=== PATIENT | male | born 1985 | race Caucasian/White ===

== ENCOUNTER 2020-10-19 12:21 | Emergency (ER) | payer OTHER, SELFPAY ==
[2020-10-19 12:36] VITALS: BP 126/80; PULSE 77; RESP 18; TEMP 36.7; O2SAT 98
--- NOTE | 2020-10-19 13:00 | ED.SKABFB ---
HPI - Skin/Abscess/Foreign Bdy General Chief complaint: Skin/Abscess/Foreign Body Stated complaint: poison abrahan Source: patient and RN notes reviewed Limitations: no limitations History of Present Illness HPI narrative: The patient, who works in [employer], presents with skin eruption. Patient states he has a pink, raised somewhat , classically linear eruption on his right forearm and other scattered sites. Symptoms are mild unrelieved with his eczema steroid cream, like prior poison abrahan. No fever, discharge, redness/streaking; requests refill of his asthma inhaler. Related Data Home Medications Medication Instructions Recorded Confirmed cetirizine [Zyrtec] 10 mg PO DAILY PRN 10/19/20 10/19/20 Allergies Allergy/AdvReac Type Severity Reaction Status Date / Time No Known Allergies Allergy Verified 10/19/20 12:33 Review of Systems Review of Systems: General/Constitutional: No weight loss,fever Eyes: N0: Redness,discharge Ears/Nose/Throat: No: Epistaxis,ear discharge Respiratory: Denies: Hemoptysis Gastrointestinal: No Vomiting, Bleeding-rectal Skin: No Lumps, REPORTS eruption Neurologic: No Focal Weakness,Sz Hematologic: Denies: Petechiae/Purpura Psychiatric: No: Suicida ideationl All Other Systems: Reviewed and Negative PMFSH Social History Social History Gender identity (if verbalized by the patient): Male Comments At time of signature, agree with nursing past medical, surgical, social and family history. There is no relevant family history pertinent to the presenting complaint Exam Narrative: General Appearance: Well nourished Normocephalic, Conjunctiva clear Mouth/Throat: Normal appearing Neck Exam: Supple Respiratory: Airway patent, No respiratory distress Musculoskeletal: Moves all extremities, Non tender Skin: Warm, Dry; rare, scattered classic macropapular and papulovesicular eruption on arm, trunk Neurological: A&O x3 Psychiatric: Normal mood, Normal affect Course Vital Signs Vital signs: Vital Signs Temperature 98.0 F 10/19/20 12:36 Pulse Rate 77 10/19/20 12:36 Respiratory Rate 18 10/19/20 12:36 Blood Pressure 126/80 10/19/20 12:36 Pulse Oximetry 98 10/19/20 12:36 Temperature 98.0 F 10/19/20 12:36 Pulse Rate 77 10/19/20 12:36 Respiratory Rate 18 10/19/20 12:36 Blood Pressure 126/80 10/19/20 12:36 Pulse Oximetry 98 10/19/20 12:36 Discharge Plan Discharge Clinical Impression: Contact dermatitis Qualifiers: Contact dermatitis type: unspecified Contact dermatitis trigger: non-food plants Qualified Code(s): L25.5 - Unspecified contact dermatitis due to plants, except food Patient Disposition: Home, Self-Care Condition: Stable Instructions: Contact Dermatitis (ED) Prescriptions: New prednisone 20 mg tablet 60 mg PO DAILY Qty: 21 RF: 0 albuterol sulfate [Ventolin HFA] 90 mcg/actuation HFA aerosol inhaler 2 puff INHALATION QID PRN (Reason: shortness of breath or wheezing) Qty: 8.5 RF: 1 No Action cetirizine [Zyrtec] 10 mg Tablet 10 mg PO DAILY PRN (Reason: Eye Irritation) RF: 0 Follow-up/Referrals: PHYSICIAN,SIDE SEAM MACHINE OPERATOR [Primary Care Provider] -
== END 2020-10-19 13:06 | disposition home or self-care (01) ==
PROVIDERS: Emergency Provider Emergency Medicine
DX: L25.5 Unspecified contact dermatitis due to plants, except food (principal); C95.90 Leukemia, unspecified not having achieved remission
CPT/HCPCS: 99203; G0463

== ENCOUNTER 2021-11-15 10:27 | Emergency (ER) | payer OTHER, SELFPAY ==
--- NOTE | 2021-11-15 10:37 | ED.URI ---
HPI - URI/Sore Throat General Chief Complaint: Upper Respiratory Infection Stated Complaint: sorethroat Time Seen by Provider: 11/15/21 10:37 Source: patient Mode of arrival: ambulatory Limitations: no limitations History of Present Illness HPI Narrative: Mr. Spaulding is a 36-year-old male patient presenting to the clinic today with complaints of a throat irritation/difficulty swallowing. He reports this has been an ongoing concern for him however yesterday it got worse. He reports that he was eating something and did not chew it very well and felt as though it got stuck in his throat. He denies any drooling or difficulty breathing. He reports his mother has a same issue and she has had to have an EGD with dilatation in the past for this. MD elicited complaint: sore throat and nasal congestion Related Data Home Medications Medication Instructions Recorded Confirmed No Home Medications 11/15/21 11/15/21 Allergies Allergy/AdvReac Type Severity Reaction Status Date / Time No Known Allergies Allergy Verified 11/15/21 10:47 Review of Systems Review of Systems: Pertinent positives per HPI. Patient denies any fever, chills, rash, headache, visual changes, dizziness, cough, shortness of breath, chest pain, palpitations, nausea, vomiting, diarrhea, constipation, abdominal pain, or any urinary issues. PMFSH Social History Social History Gender identity (if verbalized by the patient): Male Comments At the time of my signature, I reviewed and agree with the nursing past medical, surgical, social, and family history. There is no relevant family history pertinent to the patient complaint. Exam Narrative: General: Well-developed, well nourished, in no apparent distress Head: Normocephalic, atraumatic Eyes: Pupils equally round and reactive to light bilaterally, EOM intact, sclera and conjunctive clear, no discharge, lids normal Ears: TMs intact and clear, ear canals clear, no drainage, grossly hearing normal. Nose: Nares patent, no discharge, no inflammation, no sinus tenderness. Mouth: Oral pharynx without lesions or masses, good dentition, MMM. discomfort in the esophagus without palpable mass Neck: Supple, trachea midline, no enlargement of anterior or posterior cervical nodes, no thyroid masses or goiter palpable. Cardio: Regular rate and rhythm, s1 and s2 normal, no murmur appreciated. Resp: Clear to auscultation bilaterally, no rhonchi, rales, wheezing or rubs Course Course Emergency Course: Portions of this record may have been created with voice recognition software. Level of Care: Express Care Visit Vital Signs Vital signs: Vital signs reviewed MDM - URI/Sore Throat MDM Narrative Medical decision making narrative: At the time of visit patient is resting comfortably on the exam table. Patient has esophageal discomfort with difficulty swallowing and globus sensation. Glucagon 1 mg IM given in the clinic today as a smooth muscle relaxant. Discussed eating a soft/liquid diet until seen by GI. GI referral was given for possible need for EGD with dilatation. Patient was told to go the emergency room if he develops drooling, feeling as though his throat is closing, or shortness of breath. Differential Diagnosis Differential diagnosis: Likely upper respiratory infection, otitis media, sinusitis, viral infection, bronchitis, influenza, pharyngitis and other (Large thyroid, globus sensation, retained food in the esophagus) Discharge Plan Discharge Clinical Impression: Globus sensation, Difficulty in swallowing Patient Disposition: Home, Self-Care Condition: Stable Instructions: Antibiotic Form, Dysphagia (ED) Additional Instructions: Glucagon 1 mg IM given in the clinic today to help as a smooth muscle relaxant Increase fluids and stay well-hydrated Eat a soft/liquid diet until seen by GI specialist Referral given to GI specialist
[2021-11-15 10:44] VITALS: BP 133/84; PULSE 82; RESP 18; TEMP 36.3; O2SAT 98
[2021-11-15] MEDS: GLUCAGON FOR INJ 1 MG VIAL IM (10:59)
== END 2021-11-15 11:28 | disposition home or self-care (01) ==
PROVIDERS: Emergency Provider Nurse Practitioner Family; PCP Nurse Practitioner
DX: F45.8 Other somatoform disorders (principal)
CPT/HCPCS: 96372; 99212; G0463; J1610

== ENCOUNTER 2021-12-17 01:31 | Day surgery (SDC) | payer OTHER, SELFPAY ==
[2021-12-02 12:55] VITALS: BMI 28.8
[2021-12-17 09:00] VITALS: BP 121/88; PULSE 79; RESP 16; TEMP 36.3; O2SAT 100; BMI 28.8
[2021-12-17] MEDS: LACTATED RINGERS 1,000 ML 150 ML IV CONT (09:27)
--- NOTE | 2021-12-17 09:39 | WPDANESEPPF ---
Anes - Initial Pre Proc Eval Procedure: Operation Date: 12/17/21 10:00 Proposed Procedures p Esophagogastroduodenoscopy - Luis Chauhan MD Date/Time: 12/17/21 09:39 Surgeon: Luis Chauhan MD Pre Op Diagnosis: dysphagia Patient Data Age: 36 Gender: M Height: 1.91 m Weight: 104.8 kg Last Vital Signs Temp 97.3 F L 12/17/21 09:00 Pulse 79 12/17/21 09:00 Resp 16 12/17/21 09:00 BP 121/88 12/17/21 09:00 Pulse Ox 100 12/17/21 09:00 O2 Del Method Room Air 12/17/21 09:00 Allergies Allergy/AdvReac Type Severity Reaction Status Date / Time No Known Allergies Allergy Verified 12/02/21 13:06 Home Medications Medication Instructions Recorded Confirmed Type cetirizine 5 mg chewable tablet 5 mg PO DAILY PRN Allergy Symptoms 11/19/21 12/02/21 History fluticasone propionate 50 50 mcg intranasal DAILY 12/02/21 12/02/21 History mcg/actuation nasal spray,suspension Patient hx anesthesia problems: none Family hx anesthesia problems: none Results Review: All pre-operative results and documents have been reviewed as part of the pre-operative evaluation. [facility] Past Medical History Medical History (Updated 11/19/21 @ 08:27 by Cosme Sepulveda) Leukemia Social History Social History Smoking status: Never smoker Alcohol intake: never Substance use: never Substance use type: does not use Living arrangements: with family Gender identity (if verbalized by the patient): Male Spiritual care concerns: No Anes - Eval Final PreProcedure Day of Procedure 12/17/21 09:39 Patient weight: overweight Heart: regular rate and rhythm Lungs: clear to auscultation Airway: Mallampati scale class II Neurological: alert and oriented Last oral intake: >/= 8 hours ASA classification: II Emergent: no Anesthetic plan: proceed Anesthesia type and monitoring: general GIVS and standard monitoring Results Review: All pre-operative results and documents have been reviewed as part of the pre-operative evaluation. Informed Consent: The patient's anesthetic plan and its attendant risks and benefits were discussed with the patient/family/POA. Questions were solicited and answers provided to the satisfaction of the patient/family/POA.
--- NOTE | 2021-12-17 09:56 | WPDHPUPDATE1 ---
History and Physical Update Update Date/Time: 12/17/21 09:57 History and Physical has been reviewed, including an updated exam of the patient. There are NO changes in the patient's condition. Risks, benefits, and alternatives have been discussed and questions answered. Patient agrees to proceed with procedure.
[2021-12-17 10:13] VITALS: BP 108/73; PULSE 81; RESP 21; O2SAT 98
[2021-12-17 10:23] VITALS: BP 108/76; PULSE 83; RESP 17; O2SAT 99
[2021-12-17 10:33] VITALS: BP 121/80; PULSE 74; RESP 19; O2SAT 100
[2021-12-17 10:43] VITALS: BP 119/85; PULSE 65; RESP 20; O2SAT 100
== END 2021-12-17 10:52 | disposition home or self-care (01) ==
PROVIDERS: PCP Nurse Practitioner; Visit Provider Internal Medicine Gastroenterology
PROC: 0DJ08ZZ Inspection of Upper Intestinal Tract, Via Natural or Artificial Opening Endoscopic (ICD-10-PCS; CPT 43235; principal; 2021-12-17 10:00)
DX: Z09 Encounter for follow-up examination after completed treatment for conditions other than malignant neoplasm (principal); R13.10 Dysphagia, unspecified; K20.90 Esophagitis, unspecified without bleeding; Z85.6 Personal history of leukemia; K29.50 Unspecified chronic gastritis without bleeding
CPT/HCPCS: 43239; 88305; J2001; J2704; J7120

== ENCOUNTER 2024-07-10 15:26 | Emergency (ER) | payer OTHER, SELFPAY ==
[2024-07-10 15:38] VITALS: BP 121/78; PULSE 83; RESP 16; TEMP 36.3; O2SAT 98
--- NOTE | 2024-07-10 15:41 | ED.URI ---
HPI - URI/Sore Throat General Chief Complaint: Upper Respiratory Infection Stated Complaint: strep throat Time Seen by Provider: 07/10/24 15:48 Source: patient, RN notes reviewed and old records reviewed Mode of arrival: ambulatory Limitations: no limitations History of Present Illness HPI Narrative: 38 year old male recently treated with Penicillin for 10 days for strep throat which he states that he completed last week states pain to throat again started on Monday. He states that he has seasonal allergies and thought initially it was that but all family members have been diagnosed with strep this week. Patient reports that they have just about bought out the toothbrushes at the drug store. MD elicited complaint: sore throat Pertinent past history: seasonal allergies and other (strep throat) Onset (ago): day(s) (3 days) Consistency: progressively worsening Severity: mild Description of mucous: clear Able to tolerate fluids by mouth: Yes Treatments prior to arrival: none Related Data Home Medications ?Medication ?Instructions ?Recorded ?Confirmed ?Last Taken ?Type cetirizine 5 mg chewable tablet 5 mg PO DAILY PRN Allergy Symptoms 11/19/21 10/26/23 Unknown History fluticasone propionate 50 50 mcg intranasal DAILY 12/02/21 10/26/23 Unknown History mcg/actuation nasal spray,suspension Allergies Allergy/AdvReac Type Severity Reaction Status Date / Time No Known Allergies Allergy Verified 07/10/24 15:38 Review of Systems Review of Systems: CONSTITUTIONAL: Denies malaise, chills, sweats, or fever. EYES: Denies visual changes, redness, or discharge. ENT: Reports rhinorrhea, congestion, sinus pain, otalgia positive for sore throat. CARDIOVASCULAR: Denies chest pain, palpitations, or edema. RESPIRATORY: Reports no cough.? Denies dyspnea. GASTROINTESTINAL: Denies abdominal pain, nausea, vomiting, diarrhea SKIN: Denies rash or itching. MUSCULOSKELETAL: Denies myalgia. NEUROLOGIC: Denies headache. All systems reviewed & are unremarkable except as noted in HPI and below PMFSH Past Medical History Medical History Eosinophilic esophagitis Leukemia Social History Social History Smoking status: Never smoker Alcohol intake: never Substance use: never Substance use type: does not use Living arrangements: with family Gender identity (if verbalized by the patient): Male Spiritual care concerns: No Comments At time of signature, agree with nursing past medical, surgical, social and family history. There is no relevant family history pertinent to the presenting complaint Exam Narrative: GENERAL: Well-appearing, well-nourished, and in no acute distress. HEAD: Normocephalic EYES: PERRLA, conjunctivae clear ENT: Nares clear, turbinates edematous and erythematous, clear discharge. Mucous membranes moist. TM pearly chao with dull light reflex bilaterally; no tragal tenderness. Oropharynx erythematous without lesions. Tonsils red enlarged and without exudate, no drooling, no hoarseness, no trismus, uvula midline and red, some post nasal drainage. NECK: Supple. No lymphadenopathy CHEST: Clear to auscultation, breath sounds equal. No wheezing, rhonchi, rales, or stridor. No respiratory distress, speaks in full sentencesSAO2 98% on room air HEART: Regular rate and rhythm. No murmur heard. SKIN: Warm, dry, no rash. NEURO: Alert and oriented x3. PSYCH: Normal mood and affect Course Course Emergency Course: Patient is aware of diagnosis, understands and agrees to treatment plan.? Anticipatory guidance given.? Patient agrees to follow-up as directed and is aware of reasons to seek care at the emergency department. Portions of this record may have been created with voice recognition software Level of Care: Express Care Visit Vital Signs Vital signs: Vital Signs Temperature 36.3 C L 07/10/24 15:38 Pulse Rate 83 07/10/24 15:38 Respiratory Rate 16 07/10/24 15:38 Blood Pressure 121/78 07/10/24 15:38 Pulse Oximetry 98 07/10/24 15:38 Oxygen Delivery Room Air 07/10/24 15:38 Temperature 36.3 C L 07/10/24 15:38 Pulse Rate 83 07/10/24 15:38 Respiratory Rate 16 07/10/24 15:38 Blood Pressure 121/78 07/10/24 15:38 Pulse Oximetry 98 07/10/24 15:38 Oxygen Delivery Room Air 07/10/24 15:38 Reviewed MDM - URI/Sore Throat MDM Narrative Medical decision making narrative: Differential diagnosis considered: Mireles virus, strep pharyngitis, allergic rhinitis, upper respiratory tract infection, sinusitis, rhinosinusitis, nasopharyngitis. viral pharyngitis, otitis media, otitis externa, pneumonia, bronchitis, viral cough syndrome, viral syndrome, and influenza.? Exam findings show no acute concerns or changes; patient is non-toxic appearing and is in no distress.? Patient is appropriate for outpatient treatment and follow-up. Differential Diagnosis Differential diagnosis: Likely upper respiratory infection, viral infection, pharyngitis and other (strep pharyngitis) Medical Records Attestation: I reviewed the patient's medical records. Lab Data Attestation: I reviewed the patient's lab results. Lab results narrative: strep screen positive Labs: Lab Results 07/10/24 Range/Units 15:47 POC Grp A Strep Screen Positive (Negative) Critical Care Time Critical Care Time Critical Care Time: No Discharge Plan Discharge Clinical Impression: Strep pharyngitis Patient Disposition: Home Condition: Stable Instructions: Antibiotic Form, Strep Throat (ED) Additional Instructions: You tested positive for Group A strep . Take the entire course of antibiotics. Throw away your current toothbrush and begin using a new toothbrush in 48 hours in order to prevent re-infection. Sanitize all reusable water bottles . Do not share items with others. Salt water gargles may alleviate some of the throat discomfort. You can take Tylenol or ibuprofen per the package instructions for pain/fever. If your symptoms persist, change or worsen significantly before you can contact your personal physician then please, without delay, go to the emergency department for further evaluation. Follow-up with PCP in 7-10 days or sooner if needed Patient Language: Portuguese Prescriptions: New amoxicillin-pot clavulanate 875-125 mg tablet 1 tablet PO Q12H Qty: 20 0RF Rx Instructions: take all doses of oral antibiotic may be beneficial to take probiotic while taking this medication No Action cetirizine 5 mg tablet,chewable 5 mg PO DAILY PRN (Reason: Allergy Symptoms) fluticasone propionate 50 mcg/actuation spray,suspension 50 mcg INTRANASAL DAILY Follow-up/Referrals: Jon,IMTIAZ Gupta [Primary Care Provider] - Time of Disposition: 15:58 Quality [place] Coma Scale Eyes: Open Verbal: Oriented and Alert Motor: Follows Commands Mejia Coma Total Score: 15
[2024-07-10 15:49] LABS: EDSTREPNEGPOS1 Positive (Negative)
--- OUTSIDE RECORDS SUMMARY | 2024-07-10 16:16 | XMS_ITS | Encounter Summary ---
Author Organization [facility] Address [address] [place] [id number] Care Team Providers Care Oral Pathologist Name Role Phone Emily Webb NP Primary Care Provider [phone] Encounter Details Date Type Department Care Team (Late st Contact Info) Description 12/04/2023 [employer] Message Enc [facility] Medical [facility] Family Medicine [facility] [address] [place] [address] [facility] Provider Physical Therapy Social History Tobacco Use Types Packs/Day Years Used Date Smoking Tobacco: Never Passive Smoke Exposure: Never Smokeless Tobacco: Never Comments:The provider can pr ovide you with more information about quitting. 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
--- OUTSIDE RECORDS SUMMARY | 2024-07-10 16:16 | XMS_ITS | Encounter Summary ---
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
--- OUTSIDE RECORDS SUMMARY | 2024-07-10 16:16 | XMS_ITS | Clinical Summary ---
Author Organization [facility] Address [facility] [place] [address] Care Team Providers Care Special Diet Cook Name Role Phone Emily Webb NP Primary Care Provider [phone] Allergies No known active allergies Medications triamcinolone 0.1 % creamIndications :Contact dermatitis due to poison abrahan Apply topically 2 (two) times daily. 45 g 2 Active albuterol sulfate HFA 108 (90 Base) MCG/ACT inhaler Inhale 2 puffs into the lungs every 6 (six) hours as needed for Wheezing. Active cetirizine (ZYRTEC) 10 MG tablet Take 1 tablet (10 mg total) by mouth daily. Active fluticasone propionate (FLONASE) 50 MCG/ACT nasal spray 2 sprays by Each Nostril route daily. 3 Active penicillin VK 500 MG tabletIndication s:Strep pharyngitis Take 1 tablet (500 mg total) by mouth 3 (three) times daily for 10 days. 30 tablet 5 06/28/19 25 Active Problems Problem Noted Date Diagnosed Date Overweight (BMI 25.0-29.9) 11/22/2023 Assessment & Plan (11/22/2023 6:36 PM CDT): Encourage following a healthy well balance diet and staying active. Neck pain 11/21/2023 Overview (11/22/2023): Igor presented with sudden achy pain to the left side of his neck and radiates to the back of his left arm while sitting at his computer with numbness in his left thumb and pointer finger.He states his numbness improved with stretching and chiropractic adjustment. Denies any limited ROM or pain exacerbated with movement. Denies any trauma, CP, SOB, palpitations. Assessment & Plan (11/22/2023 6:33 PM CDT): Igor agrees to start with a XR of his cervical spine. Presented recommendations for physical therapy which he said he would wait on for now since symptoms are improving. Based on his symptoms it could indicate possible C3- C7 involvement. Patient education: stretching practice, maintain proper body mechanics at the computer. Elevated blood pressure reading 11/21/2023 Assessment & Plan (11/21/2023 2:28 PM CDT): BP elevated today in office. Goal for BP to stay below 140/90. Encourage lifestyle modifications to include healthy eating, decrease salt and caffeine in diet, routine exercise, and weight loss, BP log sent to patient through [employer]. Follow up in 1 month for bp recheck. Pure hypercholesterolemia 07/27/2022 Assessment & Plan (11/21/2023 2:28 PM CDT): Will recheck lipid panel and follow. Mild intermittent asthma (HHS/HCC) 07/27/2022 Overview (11/22/2023): Currently well controlled. It not using his rescue inhaler more then twice a week currently. Assessment & Plan (11/21/2023 3:04 PM CDT): Chronic condition, controlled. No changes needed at this time. If needing to use rescue inhaler more then twice a week to follow up . Denies pneumococcal vaccine at this time. Resolved Problems Problem Noted Date Diagnosed Date Resolved Date Moderate persistent asthma, unspecified whether complicated (HHS/HCC) 04/13/2022 07/27/2022 Encounters Date Type Department Care Team Description 06/17/2024 12:20 PM CDT Office Visit [facility] Family Medicine - [place] [address] [facility] [address] [place] [address] Emily Webb, [employer] Sore Throat (Patient presents with c/o sore throat, chills, body aches x Monday Kids had strep throat last week) 06/17/2024 Travel from Last 3 Months Immunizations Immunization Administration Dates Next Due Dtp (Generic) 09/25/1992,03/10/1989,04/08/1988 ,1987,1987 Hepatitis B Pediatric 02/27/1998,09/19/1997,07/1997 Hib (Generic) 03/10/1989 MMR (MMRII) 09/25/1992,12/09/1988 Polio Opv (Generic) 09/25/1992,03/10/1989,1987,1987 Td (TDVAX) 12/05/2001 Family History Medical History Relation Comments Hyperlipidemia Father Relation Status Comments Father Social History Tobacco Use Types Packs/Day Years Used Date Smoking Tobacco: Never Passive Smoke Exposure: Never Smokeless Tobacco: Never Tobacco Cessation:Counseling Given: No Comments:The provider can provide you with more information about quitting. Alcohol Use Standard Drinks/Week Comments Never 0 (1 standard drink = 0.6 oz pur e alcohol) PHQ-2 Answer Date Recorded Patient Health Questionnaire-2 Score 0 06/17/2024 Sex and Gender Information Value Date Recorded Sex Assigned at Not on file Legal Sex Male 8:05 AM CDT Gender Identity Male 05/17/2021 5:06 PM APPRAISER IRRIGATION TAX Sexual Orientation Straight 05/17/2021 5: 06 PM APPRAISER IRRIGATION TAX Last Filed Vital Signs Vital Sign Reading Time Taken Comments Blood Pressure 126/78 06/17/2024 12:26 PM CDT Pulse 106 06/17/2024 12:26 PM CDT Temperature 37.3 C (99.2 F) 06/17/2024 12:26 PM CDT Respiratory Rate 18 06/17/2024 12:26 PM CDT Oxygen Saturation 98% 06/17/2024 12:26 PM CDT Inhaled Oxygen Concentration - - Weight 107.5 kg (237 lb) 06/17/2024 12:26 PM CDT Height 188 cm (6' 2 ) 06/17/2024 12:26 PM CDT Body Mass Index 30.43 06/17/2024 12:26 PM CDT Plan of Treatment Health Maintenance Due Date Last Done Comments DTaP, Tdap and Td Vaccines (6 - Tdap) 12/06/2001 12/05/2001, 09/25/1992, 03/10/1989, Additional history exists Pneumococcal Vaccine: Pediatrics (0 to 5 Years) and At-Risk Patients (6 to 49 Years) (1 of 2 - PCV) 08/18/2006 COVID-19 Vaccine (2 - season) 2023 12/11/2020 Annual Physical 11/20/2024 11/21/2023, 07/11, 05/18/2021 Hepatitis B Vaccines Completed 02/27/1998, 09/19/1997, 08/15/1997 Hepatitis C Completed 05/21/2021 PHQ-2 (Physician [place]) Completed 06/17/2024 HPV Vaccines Aged Out No longer eligi ble based on patient's age to complete this topic Meningococcal B Vaccine Aged Out No l onger eligible based on patient's age to complete this topic Meningococcal Vaccine Aged Out No juanjose ortiz eligible based on patient's age to complete this topic RSV Immunizations Under 20 Months Aged Out No longer eligible based on patient's age to complete this topic Procedures Procedure Name Priority Date/Time Associated Diagnosis Comments STREP A RAPID Routine 06/17/2024 Sore throat HEPATITIS C ANTIBODY Routine 05/21/2021 8:21 AM APPRAISER IRRIGATION TAX Need for hepatitis C screening test from Last 3 Months or Most Recently Relevant to Health Maintenance Results * (ABNORMAL) STREP A RAPID (06/17/2024) RAPID STREP TEST POSITIVE(A ) NEGATIVE [address] [place] Internal Control: VALID VALID [address] [place] STRUCTURE OF ANTERIOR PORTION OF NECK / Unknown 06/17/2024 us Emily Webb NP MICROBIOLOGY - GENERAL OR DERABLES Final Result [address] [place] [address] [facility] [address] [place] [address], [place] [phone] * HEPATITIS C ANTIBODY (05/21/2021 8:21 AM APPRAISER IRRIGATION TAX) HEPATITIS C AB NON-REACTI VE NON-REACT ARON 05/21/2021 9:44 PM APPRAISER IRRIGATION TAX [facility] Comment: ANTIBODIES TO HCV NOT DETECTED. DOES NOT EXCLUDE THE POSSIBILITY OF EXPOSURE TO HCV. 05/21/2021 8:21 AM APPRAISER IRRIGATION TAX Emily Webb [employer] Final Res ult [facility] [address] [place] [address], [id number] from Last 3 Months or Most Recently Relevant to Health Maintenance Insurance [facility] Care Teams Special Diet Cook Relationship Specialty Start Date End Date Emily Webb NP [address] [place] [address] PCP - General NURSE PRACTITIONER 05/11/21
--- OUTSIDE RECORDS SUMMARY | 2024-07-10 16:16 | XMS_ITS | Encounter Summary ---
Author Organization [facility] Address [address] [place] [id number] Care Team Providers Care Sales Enablement Lead Name Role Phone Emily Webb NP Primary Care Provider [phone] Reason for Visit * Reason Onset Date Comments Orders 11/30/2023 Encounter Details Date Type Department Care Team (Late st Contact Info) Description 11/30/2023 My-Hammer Message Enc [facility] Family Medicine [facility] [address] [facility] [address] [place] [id number] Emily Webb, [place] [address] [place] [id number] Physical therapy request Social History Tobacco Use Types Packs/Day Years [...] CDT Gender Identity Male 05/17/2021 5:06 PM RAPID OUTSOLE STITCHER Sexual Orientation Straight 05/17/2021 5: 06 PM RAPID OUTSOLE STITCHER documented as of this encounter Progress Notes * Rachele Tom - 12/04/2023 9:20 AM CDT Igor called in, [employer] doesn't take his insurance any longer, he is asking if you can fax a physical therapy order to [facility] in [place]. They can see him at 9:30 today if they have an order. The fax number is [phone]. documented in this encounter Plan of Treatment Not on file documented as of this encounter Visit Diagnoses Not on filedocumented in this encounter Additional Health Concerns Assessment Noted Time PHQ-9 Depression Total Score: 0 05/19/19 22 2:44 PM RAPID OUTSOLE STITCHER documented as of this encounter Care Teams Sales Enablement Lead Relationship Specialty Start Date End Date Emily Webb NP [address] [place] [address] PCP - General NURSE PRACTITIONER 05/11/21 documented as of this encounter
== END 2024-07-10 16:00 | disposition home or self-care (01) ==
PROVIDERS: Emergency Provider Registered Nurse; PCP Nurse Practitioner
DX: J02.0 Streptococcal pharyngitis (principal); C95.90 Leukemia, unspecified not having achieved remission; K20.0 Eosinophilic esophagitis
CPT/HCPCS: 87880; 99213; G0463

== ENCOUNTER 2024-08-15 12:22 | Emergency (ER) | payer OTHER, SELFPAY ==
[2024-08-15 12:32] VITALS: BP 114/75; PULSE 80; RESP 16; TEMP 36.3; O2SAT 99
--- NOTE | 2024-08-15 12:35 | ED.URI ---
HPI - URI/Sore Throat General Chief Complaint: Upper Respiratory Infection Stated Complaint: Cough Time Seen by Provider: 08/15/24 12:35 Source: patient Mode of arrival: ambulatory Limitations: no limitations History of Present Illness HPI Narrative: Igor is a 38-year-old male patient presenting to the clinic today with complaints of cough and nasal congestion. He reports symptoms have been going on for approximately 1 week. He denies any fevers, chills, body aches. Denies any shortness of breath or chest pain. Related Data Home Medications ?Medication ?Instructions ?Recorded ?Confirmed ?Last Taken ?Type cetirizine 5 mg chewable tablet 5 mg PO DAILY PRN Allergy Symptoms 11/19/21 10/26/23 Unknown History fluticasone propionate 50 50 mcg intranasal DAILY 12/02/21 10/26/23 Unknown History mcg/actuation nasal spray,suspension Allergies Allergy/AdvReac Type Severity Reaction Status Date / Time No Known Allergies Allergy Verified 07/10/24 15:38 Review of Systems Review of Systems: Pertinent positives per HPI. Patient denies any fever, chills, rash, headache, visual changes, dizziness, shortness of breath, chest pain, palpitations, nausea, vomiting, diarrhea, constipation, abdominal pain, or any urinary issues. [facility] Past Medical History Medical History Eosinophilic esophagitis Leukemia Social History Social History Smoking status: Never smoker Alcohol intake: never Substance use: never Substance use type: does not use Living arrangements: with family Gender identity (if verbalized by the patient): Male Spiritual care concerns: No Comments At the time of my signature, I reviewed and agree with the nursing past medical, surgical, social, and family history. There is no relevant family history pertinent to the patient complaint. Exam Narrative: General: Well-developed, well nourished, in no apparent distress Head: Normocephalic, atraumatic Eyes: Pupils equally round and reactive to light bilaterally, EOM intact, sclera and conjunctive clear, no discharge, lids normal Ears: TMs intact and congested, ear canals clear, no drainage, grossly hearing normal. Nose: Nares patent, clear nasal discharge, no inflammation, no sinus tenderness. Mouth: Oral pharynx without lesions or masses, good dentition, MMM. Postnasal drip Neck: Supple, trachea midline, no enlargement of anterior or posterior cervical nodes, no thyroid masses or goiter palpable. Cardio: Regular rate and rhythm, s1 and s2 normal, no murmur appreciated. Resp: Clear to auscultation bilaterally, no rhonchi, rales, wheezing or rubs Course Course Emergency Course: Portions of this record may have been created with voice recognition software. Level of Care: Express Care Visit Vital Signs Vital signs: Vital Signs Temperature 36.3 C L 08/15/24 12:32 Pulse Rate 80 08/15/24 12:32 Respiratory Rate 16 08/15/24 12:32 Blood Pressure 114/75 08/15/24 12:32 Pulse Oximetry 99 08/15/24 12:32 Oxygen Delivery Room Air 08/15/24 12:32 Temperature 36.3 C L 08/15/24 12:32 Pulse Rate 80 08/15/24 12:32 Respiratory Rate 16 08/15/24 12:32 Blood Pressure 114/75 08/15/24 12:32 Pulse Oximetry 99 08/15/24 12:32 Oxygen Delivery Room Air 08/15/24 12:32 Vital signs reviewed MDM - URI/Sore Throat MDM Narrative Medical decision making narrative: At the time of visit patient is resting comfortably on the exam table. Patient appears to be nontoxic. Plan: I suspect patient has URI with postnasal drip. Prescription for prednisone was sent to the pharmacy. Supportive measures were discussed with the patient and they voiced understanding discharge instructions and agrees to treatment plan. Return precautions reviewed Differential Diagnosis Differential diagnosis: Likely upper respiratory infection, otitis media, sinusitis, viral infection, bronchitis, influenza, pharyngitis and other (COVID) Discharge Plan Discharge Clinical Impression: PND (post-nasal drip) Upper respiratory infection Qualifiers: URI type: unspecified URI Qualified Code(s): J06.9 - Acute upper respiratory infection, unspecified Patient Disposition: Home Condition: Stable Instructions: Antibiotic Form, Cold Symptoms (ED), Postnasal Drip (DC) Additional Instructions: Take prescription medications only as prescribed-prednisone Increase fluids and stay well hydrated Tylenol/motrin for pain/fever Flonase and OTC antihistamines as directed Vicks vapor rub to open sinuses Sinus rinses for congestion Cepacol spray, cough drops, throat lozenges, warm tea with honey/lemon, gargle salt water to soothe throat BRAT diet for diarrhea Clear liquids x 24 hours then advance as tolerated for nausea/vomiting Go to the ED if you develop a worsening in your condition- high fever not controlled by Tylenol or Motrin, dehydration, weakness, lethargy, shortness of breath, or chest pain. Follow up with your PCP in 3-5 days if symptoms persist. Patient Language: Italian Prescriptions: New prednisone 20 mg tablet 40 mg PO DAILY 5 Days Qty: 10 0RF No Action amoxicillin-pot clavulanate 875-125 mg tablet 1 tablet PO Q12H Qty: 20 0RF Rx Instructions: take all doses of oral antibiotic may be beneficial to take probiotic while taking this medication cetirizine 5 mg tablet,chewable 5 mg PO DAILY PRN (Reason: Allergy Symptoms) fluticasone propionate 50 mcg/actuation spray,suspension 50 mcg INTRANASAL DAILY Follow-up/Referrals: Jon,IMTIAZ Gupta [Primary Care Provider] - Time of Disposition: 12:39 Quality NIHSS Nursing Documentation ED NIHSS nursing documentation: reviewed/agree
== END 2024-08-15 12:45 | disposition home or self-care (01) ==
PROVIDERS: Emergency Provider Nurse Practitioner Family; PCP Nurse Practitioner
DX: J06.9 Acute upper respiratory infection, unspecified (principal)
CPT/HCPCS: 99213; G0463

== ENCOUNTER 2025-01-20 11:57 | Emergency (ER) | payer OTHER, SELFPAY ==
--- NOTE | 2025-01-20 12:01 | ED_ITS ---
HPI - URI/Sore Throat General Chief Complaint: Upper Respiratory Infection Stated Complaint: Sinus Infection Time Seen by Provider: 01/20/25 12:02 Source: patient Mode of arrival: ambulatory Limitations: no limitations History of Present Illness HPI Narrative: Igor is a 39-year-old male patient presenting to the clinic today with complaints of sinus congestion, sinus pressure, and headache times 4-5 days. He denies any known fevers, chills, body aches. He denies any chest pain or shortness of breath. Is blowing out and coughing up some yellow nasal drainage. Has taken Zyrtec and [id number] decongestant for his symptoms. Related Data Allergies Allergy/AdvReac Type Severity Reaction Status Date / Time No Known Allergies Allergy Verified 01/20/25 12:00 Review of Systems Review of Systems: Pertinent positives per HPI. Patient denies any fever, chills, rash, visual changes, dizziness, shortness of breath, chest pain, palpitations, nausea, vomiting, diarrhea, constipation, abdominal pain, or any urinary issues. PMFSH Past Medical History Medical History Eosinophilic esophagitis Leukemia Social History Social History Alcohol intake: never Substance use: never Substance use type: does not use Living arrangements: with family Gender identity (if verbalized by the patient): Male Spiritual care concerns: No Comments At the time of my signature, I reviewed and agree with the nursing past medical, surgical, social, and family history. There is no relevant family history pertinent to the patient complaint. Exam Narrative: General: Well-developed, well nourished, in no apparent distress Head: Normocephalic, atraumatic Eyes: Pupils equally round and reactive to light bilaterally, EOM intact, sclera and conjunctive clear, no discharge, lids normal Ears: TMs intact and congested, ear canals clear, no drainage, grossly hearing normal. Nose: Nares patent, clear discharge, moderate inflammation, no sinus tenderness. Mouth: Oral pharynx without lesions or masses, good dentition, MMM. Postnasal drip Neck: Supple, trachea midline, no enlargement of anterior or posterior cervical nodes, no thyroid masses or goiter palpable. Cardio: Regular rate and rhythm, s1 and s2 normal, no murmur appreciated. Resp: Clear to auscultation bilaterally, no rhonchi, rales, wheezing or rubs Course Course Emergency Course: Portions of this record may have been created with voice recognition software. Level of Care: Express Care Visit Vital Signs Vital signs: Vital Signs Temperature 37.1 C 01/20/25 12:05 Pulse Rate 82 01/20/25 12:05 Respiratory Rate 16 01/20/25 12:05 Blood Pressure 120/90 01/20/25 12:05 Pulse Oximetry 100 01/20/25 12:05 Oxygen Delivery Room Air 01/20/25 12:05 Temperature 37.1 C 01/20/25 12:05 Pulse Rate 82 01/20/25 12:05 Respiratory Rate 16 01/20/25 12:05 Blood Pressure 120/90 01/20/25 12:05 Pulse Oximetry 100 01/20/25 12:05 Oxygen Delivery Room Air 01/20/25 12:05 Vital signs reviewed MDM - URI/Sore Throat MDM Narrative Medical decision making narrative: At the time of visit patient is resting comfortably on the exam table. Patient appears to be nontoxic. complaints of sinus congestion, sinus pressure, and headache times 4-5 days. He denies any known fevers, chills, body aches. He denies any chest pain or shortness of breath. Is blowing out and coughing up some yellow nasal drainage. Has taken Zyrtec and a [id number] decongestant. On exam patient has bilateral TMs intact and congested, clear nasal drainage, moderate anterior turbinate inflammation, oral pharynx postnasal drip, and lung sounds are clear, heart rates regular rate and rhythm. Plan: I suspect patient has viral sinusitis/URI. Prescription for prednisone was sent to the pharmacy to help alleviate sinus pressure and congestion. Supportive measures were discussed with the patient and they voiced understanding discharge instructions and agrees to treatment plan. Return precautions reviewed Differential Diagnosis Differential diagnosis: Likely upper respiratory infection, otitis media, sinusitis, viral infection, bronchitis, influenza, pharyngitis and other (COVID) Discharge Plan Discharge Clinical Impression: Acute viral sinusitis Patient Disposition: Home Condition: Stable Instructions: Antibiotic Form, Rhinosinusitis (ED) Additional Instructions: Take prescription medications only as prescribed-prednisone Increase fluids and stay well hydrated May take Tylenol or motrin as directed on bottle for pain/fever May use Flonase 1 spray in each nare daily May take OTC antihistamines such as Zyrtec or Claritin daily as directed on bottle May apply Vicks vapor rub to chest to open sinuses Sinus rinses for congestion Cepacol spray, cough drops, throat lozenges, warm tea with honey/lemon, gargle salt water to soothe throat BRAT diet for diarrhea Clear liquids x 24 hours then advance as tolerated for nausea/vomiting Go to the ED if you develop a worsening in your condition- high fever not controlled by Tylenol or Motrin, dehydration, weakness, lethargy, shortness of breath, or chest pain. Follow up with your PCP in 3-5 days if symptoms persist. Patient Language: Lithuanian Prescriptions: New prednisone 20 mg tablet 40 mg PO DAILY 5 Days Qty: 10 0RF Follow-up/Referrals: Jon,IMTIAZ Gupta [Primary Care Provider, Unknown] Time of Disposition: 12:13 Quality NIHSS Nursing Documentation ED NIHSS nursing documentation: reviewed/agree
[2025-01-20 12:05] VITALS: BP 120/90; PULSE 82; RESP 16; TEMP 37.1; O2SAT 100
== END 2025-01-20 12:15 | disposition home or self-care (01) ==
PROVIDERS: Emergency Provider Nurse Practitioner Family; PCP Nurse Practitioner
DX: J01.90 Acute sinusitis, unspecified (principal); K20.0 Eosinophilic esophagitis; C95.90 Leukemia, unspecified not having achieved remission
CPT/HCPCS: 99213; G0463